=== PATIENT | female | born 1940 | race Caucasian/White ===

== ENCOUNTER 2019-04-13 11:21 | Outpatient (CLI) | payer MEDICARE ==
--- NOTE | 2019-04-22 10:42 | Mammography Report ---
Reason: SCREENING MAMMO Procedure Date: 04/13/2019 Accession Number: [id number] / [id number] Procedure: MGN - Screening Mammo Dig Bilat CPT Code: FULL RESULT: EXAM: Screening Mammo Dig Bilat DATE: 04/13/2019 11:52 AM CLINICAL HISTORY: Screening encounter. History of benign right breast biopsy. No reported risk factors. TECHNIQUE: (B) - Bilateral CC and MLO views were obtained. COMPARISON: 02/08/2018 through 05/09/2014. PARENCHYMAL PATTERN: (A) - The breast(s) demonstrate(s) scattered fibroglandular densities. FINDINGS: There are coarse typically benign calcifications. Biopsy changes in the right breast are stable. A well-circumscribed subcentimeter hyperdense nodule in the central right breast demonstrates long-term stability, typically benign. There are no suspicious masses, calcifications, or areas of distortion. IMPRESSION: Benign findings. BI-RADS category 2. RECOMMENDATION: (ANNUAL) - Recommend routine annual screening mammography. BI-RADS CATEGORY: (2) - Benign Findings. STANDARD QUALIFYING STATEMENTS: 1. This examination was not reviewed with the aid of Computer-Aided Detection (CAD). 2. A negative or benign imaging report should not preclude biopsy if clinically suspicious findings are present. 3. Dense breasts may obscure an underlying neoplasm. 4. This examination was reviewed without the aid of 3D breast imaging (tomosynthesis).
== END 2019-04-13 11:22 | disposition home or self-care (01) ==
LOC: DI.N 11:21
PROVIDERS: ATTEND Specialist
DX: Z12.31 Encounter for screening mammogram for malignant neoplasm of breast (principal)
CPT/HCPCS: 77067

== ENCOUNTER 2019-11-29 13:04 | Outpatient (CLI) | payer MEDICARE, BC ==
--- NOTE | 2019-11-30 09:03 | DEXA Report ---
Reason: ASYMPTOMATIC MENOPAUSAL STATE Procedure Date: 11/29/2019 Accession Number: [id number] / [id number] Procedure: DEX - Dexa Spine and/or Hip CPT Code: Final Report FULL RESULT: EXAM: Dexa Spine and/or Hip DATE: 11/29/2019 1:39 PM CLINICAL HISTORY: ASYMPTOMATIC MENOPAUSAL STATE TECHNIQUE: Dual energy x-ray absorptiometry (DXA) was performed on a benchee System. Regions measured are the AP Spine, femoral neck, and if needed forearm. COMPARISON: None. In accordance with the International Society for Clinical Densitometry (ISCD) guidelines, data from previous exams may be reanalyzed using current recommendations and techniques. This is done to allow a more accurate basis for comparison with the current study. FINDINGS: The data for the lumbar spine is as follows: BMD (g/cm/cm) T-SCORE Z-SCORE REGION L1 0.909 -1.8 -0.1 L2 0.887 -2.6 -0.9 L3 0.855 -2.9 -1.1 L4 0.972 -1.9 -0.2 TOTAL 0.906 -2.3 -0.5 NOTE: All evaluable vertebrae are used for classification The data for the hip is as follows: BMD (g/cm/cm) T-SCORE Z-SCORE REGION Neck 0.669 -2.7 -0.5 TOTAL 0.645 -2.9 -0.9 NOTE: The femoral neck or total proximal femur, whichever is lowest, is used for classification. IMPRESSION: THE WHO CLASSIFICATION BASED ON THE INTERNATIONAL REFERENCE STANDARD IS OSTEOPOROSIS. THE FRACTURE RISK IS HIGH. RECOMMENDATION: Patients with diagnosis of osteoporosis or osteopenia should have regular bone mineral density assessment. For those eligible for Medicare, routine testing is allowed once every 2 years. Testing frequency can be increased for patients who have rapidly progressing disease or for those who are receiving medical therapy to restore bone mass. COMMENT: World Health Organization (WHO) definitions for osteoporosis and osteopenia: NORMAL BMD: T-score at -1.0 or higher, fracture risk is low OSTEOPENIA BMD: T-score between -1.0 and -2.5, fracture risk is increased. OSTEOPOROSIS BMD: T-score at -2.5 or lower, fracture risk is high. National Osteoporosis Foundation recommends: 1. Obtain adequate dietary calcium (at least 1200 mg per day) and vitamin D (400-800 international units per day). 2. Participate, as appropriate, in regular weightbearing and muscle-strengthening exercise. 3. Avoid tobacco use and reduce alcohol and caffeine intake. 4. For more detailed information see the website at www.NOF.org.
== END 2019-11-29 13:05 | disposition home or self-care (01) ==
LOC: DI 13:04
PROVIDERS: ATTEND Family Medicine
DX: Z13.820 Encounter for screening for osteoporosis (principal); M81.0 Age-related osteoporosis without current pathological fracture; Z78.0 Asymptomatic menopausal state
CPT/HCPCS: 77080

== ENCOUNTER 2020-09-03 11:45 | Outpatient (CLI) | payer MEDICARE, BC ==
--- NOTE | 2020-09-03 17:41 | Ultrasound Report ---
PROCEDURE: Retroperitoneal INDICATIONS: ACUTE KIDNEY INJURY TECHNIQUE: Real-time scanning was performed of the retroperitoneal organs, with image documentation. COMPARISON: None. FINDINGS: Kidneys: Kidneys are normal in size. Right kidney measures 10.6 cm long; left kidney measures 10.2 cm long. Right renal cortical thickness is 0.9 cm; left renal cortical thickness is 1.1 cm. No shawn d masses. There are multiple renal cysts, the largest of which measures 1.6 cm in diameter. There is mild bilateral pelviectasis. No hydronephrosis. Punctate calcifications are noted bilaterally, the la rgest of which measures 4 mm. Prevoid bladder volume is 202.4 cc and postvoid bladder volume is 10.6 cc. The bilateral ureteral jet s are visualized. IMPRESSION: 1. Mild bilateral pyelectasis. No hydronephrosis. 2. Nonobstructive nephrolithiasis. 3. Simple bilateral renal cysts. 4. Trace postvoid residual. Reviewed by: Marie Gutiérrez MD on 09/03/2020 5:39 PM PST Approved by: Marie Gutiérrez MD on 09/03/2020 5:39 PM PST Station ID: [id number]
== END 2020-09-03 11:46 | disposition home or self-care (01) ==
LOC: DI 11:45
PROVIDERS: ATTEND Internal Medicine Nephrology
DX: N13.30 Unspecified hydronephrosis (principal); N20.0 Calculus of kidney
CPT/HCPCS: 76770

== ENCOUNTER 2021-06-12 12:09 | Outpatient (CLI) | payer MEDICARE, BC ==
--- NOTE | 2021-06-12 13:07 | Ultrasound Report ---
PROCEDURE: Duplex Ext Veins Left INDICATIONS: PAIN IN LEFT LOWER LEG TECHNIQUE: Real-time imaging, as well as color and pulse Doppler interrogation, were performed of the lower extr emity deep veins from the inguinal ligament to the popliteal fossa. COMPARISON: None. FINDINGS: The deep veins are normally compressible, and free of intraluminal thrombus. Color and pu lse Doppler demonstrate normal phasic intraluminal flow. There is normal augmentation response to di stal compression maneuver. IMPRESSION: 1. No evidence of deep venous thrombosis in the left lower extremity. Reviewed by: Ruddy Wells MD on 06/12/2021 1:06 PM PDT Approved by: Ruddy Wells MD on 06/12/2021 1:06 PM PDT Station ID: [id number]
== END 2021-06-12 12:10 | disposition home or self-care (01) ==
LOC: DI 12:09
PROVIDERS: ATTEND Family Medicine
DX: M79.622 Pain in left upper arm (principal); R22.42 Localized swelling, mass and lump, left lower limb

== ENCOUNTER 2023-09-02 13:06 | Outpatient (CLI) | payer MEDICARE, BC ==
--- NOTE | 2023-09-02 14:02 | XRAY Report ---
PROCEDURE: Chest 2 View X-Ray INDICATIONS: PLEURODYNIA TECHNIQUE: 2 views of the chest were acquired. COMPARISON: None. FINDINGS: Surgical changes and devices: None. Lungs and pleura: No pleural effusions or pneumothorax. Lungs are clear. Mediastinum: Mildly tortuous thoracic aorta is seen with aortic arch calcifications. Heart size is m ildly enlarged. Bones and chest wall: No suspicious bony lesions. Overlying soft tissues appear unremarkable. IMPRESSION: No acute cardiopulmonary process. Reviewed by: Howard Hassan MD on 09/02/2023 2:00 PM PDT Approved by: Howard Hassan MD on 09/02/2023 2:00 PM PDT Station ID: [id number]
== END 2023-09-02 13:07 | disposition home or self-care (01) ==
LOC: DI 13:06
PROVIDERS: ATTEND Nurse Practitioner Family
DX: R07.81 Pleurodynia (principal)

== ENCOUNTER 2024-05-30 13:02 | Outpatient (CLI) | payer MEDICARE, BC ==
--- NOTE | 2024-05-30 21:04 | XRAY Report ---
PROCEDURE: Thoracic Spine 2V INDICATIONS: MUSCLE SPASM OF THORACIC BACK TECHNIQUE: 3 views of the thoracic spine were acquired. COMPARISON: None. FINDINGS: Bones: No fractures or dislocations. No suspicious bony lesions. 12 pairs of ribs are noted, and a ppear intact where visualized. Rightward curvature is present with apex at T6. Multilevel degenerativ e disc space narrowing. Soft tissues: No paravertebral stripe thickening. There is overall appearance of innumerable opacities overlying the lungs. IMPRESSION: Scoliotic curvature. Innumerable areas of opacity overlying the lung seen on limited view. Recommend follow-up chest x-ray to exclude underlying mass. Reviewed by: Anuradha Jaramillo MD on 05/30/2024 9:02 PM PDT Approved by: Anuradha Jaramillo MD on 05/30/2024 9:02 PM PDT Station ID: [id number]
== END 2024-05-30 13:03 | disposition home or self-care (01) ==
LOC: DI.N 13:02
PROVIDERS: ATTEND Physician Assistant
DX: M41.9 Scoliosis, unspecified (principal); M62.830 Muscle spasm of back

== ENCOUNTER 2024-06-02 14:45 | Outpatient (CLI) | payer MEDICARE, BC ==
[2024-06-02 18:09] LABS: ALBUMIN/GLOBULIN RATIO 1.3 (1.0-2.2); BILIRUBIN,TOTAL 0.9 mg/dL (0.2-1.0); CALCIUM 9.9 mg/dL (8.5-10.3); CREATININE 0.8 mg/dL (0.6-1.3); POTASSIUM 3.3 mmol/L (3.5-4.5); TOTAL PROTEIN 7.1 g/dL (6.4-8.9)
[2024-06-02 18:25] LABS: BASOPHILS % (AUTO) 0.5 %; EOSINOPHILS # (AUTO) 0.1 10^3/uL (0.0-0.7); EOSINOPHILS % (AUTO) 1.3 %; HCT - HEMATOCRIT 42.2 % (37.0-47.0); HGB - HEMOGLOBIN 13.6 g/dL (12.0-16.0); LYMPHOCYTES # (AUTO) 1.8 10^3/uL (1.5-3.5); LYMPHOCYTES % (AUTO) 23.8 %; MEAN CORPUSCULAR HEMOGLOBIN 27.7 pg (27.0-31.0); MEAN CORPUSCULAR HGB CONC 32.2 g/dL (32.0-36.0); MEAN CORPUSCULAR VOLUME 85.9 fL (81.0-99.0); MEAN PLATELET VOLUME 10.9 fL (7.9-10.8); MONOCYTES # (AUTO) 0.8 10^3/uL (0.0-1.0); MONOCYTES % (AUTO) 10.5 %; NEUTROPHILS # (AUTO) 4.9 10^3/uL (1.5-6.6); NEUTROPHILS % (AUTO) 63.6 %; PLT - PLATELET COUNT 223 10^3/uL (130-450); RED BLOOD COUNT 4.91 10^6/uL (4.20-5.40); RED CELL DISTRIBUTION WIDTH 12.1 % (12.0-15.0); WHITE BLOOD COUNT 7.7 x10^3/uL (4.8-10.8)
== END 2024-06-02 15:00 | disposition home or self-care (01) ==
LOC: LAB.N 14:45
PROVIDERS: ATTEND Physician Assistant
DX: R93.7 Abnormal findings on diagnostic imaging of other parts of musculoskeletal system (principal)
CPT/HCPCS: 36415; 80053; 85025

== ENCOUNTER 2024-06-03 12:28 | Outpatient (CLI) | payer MEDICARE, BC ==
--- NOTE | 2024-06-03 17:02 | CT Report ---
PROCEDURE: Chest WO INDICATIONS: ABN CHEST XRAY TECHNIQUE: A CT scan of the chest was performed. Intravenous contrast media was not administered. Images were re corded and evaluated at appropriate window settings. Reformats: axial MIP of the chest, coronal and s agittal. For radiation dose reduction, the following was used: automated exposure control, adjustment of mA and/or kV according to patient size. COMPARISON: None. FINDINGS: Image quality: Quality of visualization within the mediastinum and within the upper abdomen is somewh at limited by the absence of oral and intravenous contrast.. Chest wall and lower neck: No thyroid nodule which requires sonographic follow up. No axillary or sup raclavicular adenopathy by size. Lungs and pleura: No consolidation but there are innumerable small pulmonary nodules the large majori ty of which are indistinctly marginated with an appearance suggestive of extensive pulmonary metastat ic disease. These nodules generally measure below 1 cm but several are slightly above 1 cm in size. T he dominant pulmonary mass is not found, however, that would suggest presence of primary neoplasm wit hin the lungs. No pleural effusions. No pneumothorax. Mediastinum: Heart size is normal. No pericardial effusion. No large vessel abnormality. No mediastin al adenopathy by size criteria. Bones: No aggressive osseous abnormality. Upper Abdomen: There is what appears to be a large slightly hypodense right posterior hepatic segment mass lesion measuring up to 7.1 cm. Additionally, the kidneys demonstrate a lobulated renal contour to the degree that solid mass lesions involving the renal cortex is suspected at the mid kidney level bilaterally. On the right the suspected mass measures up to 2.9 cm and on the left a suspected mass measures up to 2.7 cm.. IMPRESSION: Presumed extensive pulmonary metastatic disease, definite lesion involving the right posterior hepati c segment that measures up to 7.1 cm. Probable solid mass lesions within the kidney cortex bilaterall y measuring between 2.7 and 2.9 cm each. Contrast enhanced chest abdomen and pelvis CT scanning appea rs warranted when clinically feasible. Reviewed by: Joe Melendez MD on 06/03/2024 5:01 PM PDT Approved by: Joe Melendez MD on 06/03/2024 5:01 PM PDT Station ID: [id number]
== END 2024-06-03 12:29 | disposition home or self-care (01) ==
LOC: DI 12:28
PROVIDERS: ATTEND Family Medicine
DX: R91.8 Other nonspecific abnormal finding of lung field (principal); K76.89 Other specified diseases of liver; R93.422 Abnormal radiologic findings on diagnostic imaging of left kidney; R93.421 Abnormal radiologic findings on diagnostic imaging of right kidney

== ENCOUNTER 2024-06-08 13:06 | Outpatient (CLI) | payer MEDICARE, BC ==
[2024-06-08] MEDS ORDERED: iohexoL-300 100 ML VIAL ONE (13:08)
[2024-06-08] MEDS ORDERED: DIATRIZOATE MEGLU/DIATRIZO SOD 30 ML BOTTLE PO ONE (13:08)
[2024-06-08] MEDS: iohexoL-300 100 ML VIAL IVP ONE (15:31)
[2024-06-08] MEDS: DIATRIZOATE MEGLU/DIATRIZO SOD 30 ML BOTTLE PO ONE (15:31)
--- NOTE | 2024-06-08 16:14 | CT Report ---
PROCEDURE: Abdomen/Pelvis W INDICATIONS: LUNG CA, RENAL MASS CONTRAST: Omni 300 100ml TECHNIQUE: After the administration of intravenous contrast, a CT scan of the abdomen and pelvis was performed. Images were recorded and evaluated at appropriate window settings. Reformats: coronal and sagittal. F or radiation dose reduction, the following was used: automated exposure control, adjustment of mA and /or kV according to patient size. COMPARISON: CT 05/03/2024 FINDINGS: Image quality: Diagnostic. Lower chest: Separately dictated. Liver: Segment 6/7 mass with rim enhancement measuring 6.2 cm (series 2, image 43). Subcentimeter hyp oattenuating lesion in segment 2/3, too small to characterize by CT (series 2, image 38). Gallbladder: No radiopaque stones or wall thickening. Biliary tree: No intrahepatic or extrahepatic dilation, accounting for age. Spleen: No splenomegaly. Pancreas: Hypoattenuating pancreatic tail mass measuring 5.0 x 2.8 cm (series 2, image 41). No signif icant vascular involvement. 1.3 cm cyst in the pancreas head (series 2, image 53). Adrenals: Mild nodular thickening of the left adrenal gland. Kidneys and ureters: Hyperattenuating mass in the superior pole of the left kidney measuring 1.6 cm ( series 2, image 43). Complex appearing cystic lesion on the posterior margin of the left kidney measu ring 7 mm (series 2, image 52). Bilateral renal cysts are present. Stomach, bowel and peritoneum: No gastric or small bowel dilation. No abnormal wall thickening. No pa thologic free fluid. Diverticulosis without evidence of diverticulitis. Lymph nodes: Enlarged seth hepatis node measuring 1.6 cm short axis (series 2, image 38). Vessels: No infrarenal aortic aneurysm. Patent portal vein. PELVIS Reproductive organs: Unremarkable. Bladder: No abnormal wall thickening, accounting for underdistention. Pelvic lymph nodes: No pelvic adenopathy by size criteria. Bones: Mild compression deformity of the T11 vertebral body, with mild superior endplate sclerosis. Other: No significant ventral or inguinal hernia. IMPRESSION: Hyperattenuating mass in the superior pole of the left kidney measuring 1.6 cm, could represent prima ry malignancy or metastatic disease. Additional complex cystic lesion along the posterior margin of t he left kidney measures 0.7 cm, too small to characterize by CT and MRI. Large liver mass measuring 6.2 cm. Additional subcentimeter hypoattenuating lesion in segment 2/3, co uld represent metastatic disease or the large mass could be primary malignancy. Pancreatic tail mass measuring 5.0 x 2.8 cm, without significant vascular involvement. Findings are s uspicious for primary malignancy or metastatic disease. Chest CT dictated separately. Reviewed by: Eusebio Monk MD on 06/08/2024 4:12 PM PDT Approved by: Eusebio Monk MD on 06/08/2024 4:12 PM PDT Station ID: [id number]
--- NOTE | 2024-06-08 16:16 | CT Report ---
PROCEDURE: Chest W INDICATIONS: LUNG CA, RENAL MASS CONTRAST: Omni 300 100ml TECHNIQUE: After the administration of intravenous contrast, a CT scan of the chest was performed. Images were recorded and evaluated at appropriate window settings. Reformats: axial MIP of the chest, coronal and sagittal. For radiation dose reduction, the following was used: automated exposure control, adjustme nt of mA and/or kV according to patient size. COMPARISON: CT 06/03/2024 FINDINGS: Image quality: Diagnostic. Chest wall and lower neck: No thyroid nodule which requires sonographic follow up. No breast mass. No axillary or supraclavicular adenopathy by size. Lungs and pleura: No consolidation. No pleural effusions. No pneumothorax. Pulmonary nodules, most consistent with diffuse metastatic disease. This has not significantly change d from prior. Target nodules as follows: -1.1 cm left lower lobe solid nodule (series 4, image 70). -1.1 cm right upper lobe nodule (series 4, image 43). Mediastinum: Heart size is normal. No pericardial effusion. No large vessel abnormality. No mediastin al adenopathy by size criteria. Bones: Sclerosis of the T3 vertebral body, without compression deformity. Superior endplate compressi on deformity of the T11 vertebral body, with mild bony sclerosis, concerning for pathologic fracture. No measurable soft tissue component. Upper Abdomen: Separately dictated. 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 Probable pathologic fracture through the T11 vertebral body, withou t soft tissue component. Reviewed by: Eusebio Monk MD on 06/08/2024 4:15 PM PDT Approved by: Eusebio Monk MD on 06/08/2024 4:15 PM PDT Station ID: [id number]
== END 2024-06-08 13:07 | disposition home or self-care (01) ==
LOC: DI 13:06
PROVIDERS: ATTEND Family Medicine
DX: C78.00 Secondary malignant neoplasm of unspecified lung (principal); C79.51 Secondary malignant neoplasm of bone; N28.89 Other specified disorders of kidney and ureter; R16.0 Hepatomegaly, not elsewhere classified; K86.9 Disease of pancreas, unspecified
CPT/HCPCS: 71260; 74177; Q9963; Q9967